=== PATIENT | male | born 1935 | race Caucasian/White ===

== ENCOUNTER 2017-11-09 13:18 | Inpatient (IN) ==
[2017-11-09] MEDS ORDERED: LIDOCAINE W/ SODIUM BICARB 0.5 ML SYR SUBD PRN (14:48)
[2017-11-09] MEDS ORDERED: ONDANSETRON 4 MG/2 ML VIAL IVP PRN (14:48)
[2017-11-09] MEDS ORDERED: CALCIUM CARBONATE 500 MG (TUMS) CHEWABLE TABLET PO PRN (14:48)
[2017-11-09] MEDS ORDERED: DOCUSATE 100 MG CAPSULE PO PRN (14:48)
--- NOTE | 2017-11-09 14:51 | PDOC ---
HPI - History of Present Illness Date of Service: 11/09/17 Time of Service: 14:00 Chief Complaint: Abdominal pain that started yesterday History of Present Illness: This is an 82 years old male with medical history significant for history of coronary artery disease with previous stents in 2001, aortic stenosis which is moderate, hypertension and hypercholesterolemia with sleep apnea who presented yesterday to the ER in [place] complaining from pain in the epigastric area and right upper quadrant, pain is variable intensity and he had before but yesterday was severe maybe 10 out of 10. There was no radiation elsewhere. They did give him some GI cocktail and that did not help much and he was admitted to the hospital. He had troponin done and they were negative. His white count was 14,000 the next day was 17,000 and they discuss it with Dr. Chio Golden and he suggested admission to the hospital. The patient he said he feels better compared to yesterday. He did say that his blood pressure when he went to the ER there was elevated in the 200s range. he is somewhat better compared to then. He denied vomiting but did to have nausea. No diarrhea. He said he had some fever this morning. Past Medical History Medical History: 1. Moderate aortic stenosis. 2. History of coronary artery disease with previous stents had 3 in 2001. On aspirin and Plavix. 3. Diabetes on oral hypoglycemic agent. 4. History of sleep apnea. 5. History of hypertension. 6. Hypercholesterolemia Surgical History: 1. History of stents for coronary artery disease. 2. History of left knee replacement. 3. History of back surgery Family History: Reviewed an Not Pertinent Past Social History: Used to smoke quit more than 45 years ago, doesn't drink and no drugs. Tobacco Use: Former Smoker Do you dip or chew tobacco: No In the Past 12 Months, Have Used or Abuse Any of the Following Substance: None Alcohol Use: None Medication / Allergies Home Medications: Home Medications 3 Medication Instructions Recorded Confirmed Type Clopidogrel Bisulfate [Plavix] 1 tab PO DAILY #5 tab 10/13/16 Clinic Metoprolol Tartrate 1 tab PO tab 10/13/16 History Allergies/Adverse Reactions: Allergies 3 Allergy/AdvReac Type Severity Reaction Status Date / Time No Known Allergies Allergy Verified 11/09/17 15:47 Review of Systems - Review of Systems All Systems: Reviewed & No Additional Complaints Except as Stated Exam - Vitals Vital Signs: Vital Signs Temperature 98.9 F Temperature Source Oral Pulse Rate [Pulse Oximeter] 76 Respiratory Rate 18 Blood Pressure [Left Arm] 132/71 Pulse Ox 94 Oxygen Delivery Method Room Air Height 5 ft 11 in Weight 240 lb 6 oz - General General Appearance: No Acute Distress, Cooperative - Head Head Exam: Normal Inspection - Eye Eye Exam: POSITIVE: Normal Appearance - ENT ENT Exam: POSITIVE: Normal Exam - Neck Neck Exam: Normal Inspection - Respiratory Respiratory Exam: POSITIVE: Clear to Auscultation - Bilaterally - Cardiovascular Cardiovascular Exam: POSITIVE: RRR, Systolic Murmur - GI/Abdominal GI/Abdominal Exam: POSITIVE: Normal Bowel Sounds, Non Distended, Soft Additional GI/Abdominal Exam Details: mild tenderness in the right upper quadrant noted - Rectal Rectal Exam: POSITIVE: Deferred - External Exam: POSITIVE: Deferred Exam: POSITIVE: Deferred - Extremities Additional Extremities Exam Details: Chronic dermatitic changes noted. - Back Back Exam: POSITIVE: Normal Inspection - Neurological Neurological Exam: POSITIVE: Alert, Oriented x 3, CN II-XII Intact, No Facial Droop, Speech Intact / Clear, Moves All Extremities Equally - Psychiatric Psychiatric Exam: POSITIVE: Normal Affect - Integumentary Integumentary Exam: POSITIVE: Normal Color Results - Labs Additional Lab Results: Labs done in the last surgery white count of 17.6 14.3 platelets 131 neutrophil 82% Leake 9.1, lymphocytes 8.7, sodium was 136 potassium 4.6 chloride 101 carbon dioxide 23.8 glucose 180, BUN 20 creatinine 1.1 calcium 8.5 protein 7.1 albumin 3.3 troponin 3.8 alkaline phosphatase 85 ALT 28 AST 26 bilirubin 2.[address] thorax and abdomen done in [place] showed no PE, significant coronary artery calcification, bilateral renal cysts, cholelithiasis, inguinal hernia bilateral , bladder on the right and bowel on the left. No aneurysm. Assessment and Plan - Patient Problems (1) Cholelithiasis Current Visit: Yes Status: Acute Comment: I did discuss it with Dr. Hamilton who suggested IV antibiotics, and ultrasound. We did order ultrasound of his abdomen. We'll hold off on his Plavix and aspirin for now. Code(s): K80.20 - Calculus of gallbladder without cholecystitis without obstruction (2) Hypertension Current Visit: Yes Status: Acute Comment: Continue previous medications Code(s): I10 - Essential (primary) hypertension (3) Hypercholesterolemia Current Visit: Yes Status: Acute Comment: Same med Code(s): E78.00 - Pure hypercholesterolemia, unspecified
--- NOTE | 2017-11-09 15:44 | DI ---
Exam: US ABDOMEN INDICATION: Abdominal pain and cholelithiasis TECHNIQUE: Real-time imaging of the abdomen is performed in transverse and longitudinal projections. COMPARISON: None FINDINGS: There is a 2 cm mobile gallstone without gallbladder sludge. No wall thickening or pericholecystic fluid. Negative sonographic Castillo sign reported. Common bile duct diameter normal at 4 mm. Liver is enlarged measuring 20 cm with mild increase in diffuse echogenicity without focal lesion. Right kidney measures 12 cm in length. There are 2 simple cysts of the right kidney measuring 2.7 cm and 1.7 cm. Otherwise right kidney is unremarkable. Pancreas is not well seen due to overlying bowel gas shadowing. Proximal and mid abdominal aorta is not well seen due to overlying bowel gas shadowing. Distal abdominal aorta is normal in caliber measuring 1.5 cm diameter. IMPRESSION: 1. 2 cm mobile gallstone. Otherwise gallbladder is unremarkable without ultrasound findings for acute cholecystitis. 2. Common bile duct diameter normal. 3. No free fluid. 4. Hepatomegaly with fatty liver. 5. 2 simple cysts of the right kidney..
[2017-11-09] MEDS: Piperacillin/Tazobactam Inj 3.375 GM in Sodium Chloride 0.9% 100 ML IV SCH ×2 (16:55→21:17)
[2017-11-09] MEDS ORDERED: POLYETHYLENE GLYCOL 3350 17 GM POWDER PO ONE ×2 (17:22→18:30)
--- NOTE | 2017-11-09 17:56 | CONSULT ---
Consult Note - Consult Consult Date: 11/09/17 Reason for Consult: PreOp Consulation : General Surgery Requesting Physician: Dr. Javier Primary Care Provider: ELLA LEE - History of Present Illness History of Present Illness: This is an 81-year-old gentleman who has a one-day history of upper abdominal pain. He states that this is muscular pennies at. Has had anything really similar like this before. Pain is a midepigastric to right upper quadrant. It radiates out to the side. He has no nausea vomiting. He denies any fever or chills. No hematochezia hematemesis or melena. Patient initially had a 14,000 white count and his lab work was unremarkable. There was no lipase that was drawn at that time. Patient subsequently white count is gone up to 17,000. And his bilirubin is up 2.6. His liver enzymes otherwise unremarkable. Patient was then transferred to [facility]. Patient states that his abdominal pain is a lot better than it was. Review of Systems - Review of Systems All Systems: Reviewed & No Additional Complaints Except as Stated - Constitutional Constitutional: REPORTS: General Health Fair - Eye Exam Eye Exam: REPORTS: Negative System Review - Ear/Nose Exam Ear/Nose Exam: REPORTS: Negative System Review - Respiratory Respiratory: REPORTS: Negative System Review - Cardiovascular Cardiovascular: REPORTS: Negative System Review (Patient has no acute cardiovascular symptoms. He does have aortic valve stenosis and multiple stents ) - Gastrointestinal Gastrointestinal / Abdominal: REPORTS: See HPI - Genitourinary Genitourinary: REPORTS: Negative System Review - Musculoskeletal Musculoskeletal: REPORTS: Negative System Review - Neurological Neurologic: REPORTS: Negative System Review - Psychiatric Psychiatric: REPORTS: Negative System Review Past Medical History Medical History: 1. Moderate aortic stenosis. 2. History of coronary artery disease with previous stents had 3 in 2001. On aspirin and Plavix. 3. Diabetes on oral hypoglycemic agent. 4. History of sleep apnea. 5. History of hypertension. 6. Hypercholesterolemia Surgical History: 1. History of stents for coronary artery disease. 2. History of left knee replacement. 3. History of back surgery Family History: Reviewed an Not Pertinent Past Social History: Used to smoke quit more than 45 years ago, doesn't drink and no drugs. Tobacco Use: Former Smoker Do you dip or chew tobacco: No In the Past 12 Months, Have Used or Abuse Any of the Following Substance: None Medication / Allergies Home Medications: Home Medications 3 Medication Instructions Recorded Confirmed Type Clopidogrel Bisulfate [Plavix] 1 tab PO DAILY #5 tab 10/13/16 Clinic Metoprolol Tartrate 1 tab PO tab 10/13/16 History Allergies/Adverse Reactions: Allergies 3 Allergy/AdvReac Type Severity Reaction Status Date / Time No Known Allergies Allergy Verified 11/09/17 15:47 Exam - Vitals Vital Signs: Vital Signs Temperature 98.8 F Temperature Source Oral Pulse Rate [Pulse Oximeter] 74 Respiratory Rate 18 Blood Pressure [Left Arm] 130/68 Pulse Ox 93 Oxygen Delivery Method Room Air Height 5 ft 11 in Weight 240 lb 6 oz - GI/Abdominal GI/Abdominal Exam: POSITIVE: Normal Bowel Sounds, Non Tender, Non Distended, Soft - Neurological Neurological Exam: POSITIVE: Oriented x 3, CN II-XII Intact - Integumentary Additional Integumentary Exam Details: Patient has brawny edema of the lower extremities Assessment and Plan - Patient Problems (1) Cholelithiasis Current Visit: Yes Status: Acute Code(s): K80.20 - Calculus of gallbladder without cholecystitis without obstruction - Assessment / Plan Additional Assessment/Plan Details: On ultrasound the patient has a 2 cm gallstone but no evidence of acute cholecystitis. Will check a lipase in the morning. Repeat labs in the morning. Since the patient is on Plavix would like to have him off 5-7 days if possible. Continue antibiotics. I have spoken with Dr. Javier prior to and after seeing the patient
[2017-11-09] MEDS ORDERED: ATORVASTATIN 40 MG TABLET PO SCH (21:00)
[2017-11-09] MEDS: Metoprolol TARTRATE Tab 25 MG TAB PO SCH (21:13)
[2017-11-10] MEDS: Piperacillin/Tazobactam Inj 3.375 GM in Sodium Chloride 0.9% 100 ML IV SCH ×3 (04:16→16:47)
[2017-11-10 05:00] LABS: BASOPHILS # (AUTO) 0.03 10*3/UL; BASOPHILS % (AUTO) 0.2 % (0-1); EOSINOPHILS # (AUTO) 0.01 10*3/UL; EOSINOPHILS % (AUTO) 0.1 % (0-8); Hematocrit [HCT] 42.8 % (42.0-52.0); Hemoglobin [HGB] 14.1 g/dL (14.0-18.0); MEAN CORPUSCULAR HEMOGLOBIN 31.2 PG (27-31); MEAN CORPUSCULAR HGB CONC 32.9 g/dL (33-37); MEAN CORPUSCULAR VOLUME 94.7 FL (80-90); MEAN PLATELET VOLUME 9.8 FL (7.4-12.2); MONOCYTES # (AUTO) 2.03 10*3/UL (0.3-0.8); MONOCYTES % (AUTO) 11.1 % (5-15); NEUTROPHILS % (AUTO) 81.2 % (50-80); RED BLOOD COUNT 4.52 10^6/uL (4.70-6.10)
[2017-11-10 05:11] LABS: BLOOD UREA NITROGEN 21 mg/dL (7-22); SERUM ALBUMIN 3.5 g/dL (3.5-4.8)
[2017-11-10 06:41] LABS: LIPASE 146 IU/L (23-300)
[2017-11-10 06:44] LABS: PLATELET MORPHOLOGY COMMENT NORMAL MORPHOLOGY (NORM); RBC MORPHOLOGY COMMENT NORMAL MORPHOLOGY (NORM); WBC MORPHOLOGY COMMENT NORMAL MORPHOLOGY (NORM)
[2017-11-10] MEDS: Metoprolol TARTRATE Tab 25 MG TAB PO SCH (08:25)
[2017-11-10] MEDS: ACETAMINOPHEN 325 MG TABLET PO PRN ×2 (08:41→14:52)
[2017-11-10 08:48] LABS: BILIRUBIN,URINE NEGATIVE (NEG); CLARITY,URINE CLEAR (CLEAR); COLOR,URINE YELLOW (Y); GLUCOSE, URINE (UA) NEGATIVE (NEG); OCCULT BLOOD,URINE Trace-intact (NEG); PH,URINE 5.5 (5.0-8.5); PROTEIN,URINE >300 mg/dl (NEG); UROBILINOGEN,URINE 0.2 EU/dL (0.2)
[2017-11-10 08:59] LABS: URINE SAMPLE TYPE CLEAN CATCH URINE
[2017-11-10] MEDS ORDERED: LOSARTAN 50 MG TABLET PO SCH (09:00)
[2017-11-10] MEDS ORDERED: metFORMIN 500 MG TABLET PO SCH (09:00)
--- NOTE | 2017-11-10 09:11 | PDOC(PROG) ---
Date of Service: 11/10/17 Time of Service: 09:08 Interval History: Patient states that he is feeling a little bit better today. He denies any fevers. The nursing staff is according 99.2 temperature. His white count has gone up to 18,000 but he was just started on antibiotics yesterday. Patient did receive a dose of Plavix yesterday Objective : Data - Labs CBC and BMP: 11/10/17 04:35 11/10/17 04:35 - Vital Signs Vital Signs and I&O: Vital Signs - Last Taken Temperature 99.3 F 11/10/17 06:58 Pulse Rate 88 11/10/17 07:00 Respiratory Rate 28 H 11/10/17 06:58 Blood Pressure 161/77 11/10/17 06:58 Pulse Ox 90 11/10/17 06:58 Intake and Output (24hr x 4 totals) 11/08/17 11/09/17 11/10/17 11/11/17 05:59 05:59 05:59 05:59 Intake Total 461 / 461 900 / 900 Output Total 675 / 675 150 / 150 Balance -214 / -214 750 / 750 Objective : Exam - GI/Abdominal Additional GI/Abdominal Exam Details: Patient has some tenderness in the right upper quadrant and to the right flank. He does not have any rebound or rigidity. He does state it hurts to take a deep breath. Patient has bilateral inguinal hernias but there is no pain associated with that. His rest of his abdomen is soft nontender Assessment and Plan - Patient Problems (1) Cholelithiasis Current Visit: Yes Status: Acute Code(s): K80.20 - Calculus of gallbladder without cholecystitis without obstruction - Assessment / Plan Additional Assessment/Plan Details: I did think patient is. Acute cholecystitis despite ultrasound showing no thickening of the gallbladder wall. His bilirubin is elevated 4.9 but direct is 0. His common bile duct measured 4 mm. His alk phosphatase is normal, therefore, I do not think he has obstructive jaundice. Since he just started antibodies yesterday and also he he just stopped his Plavix today I would like to try another 24 hours of antibody therapy see if we cannot control acute cholecystitis. Would like to wait as long as possible to do the gallbladder surgery but if the patient continues to have increased white count or gets worse may have to do surgery despite being on Plavix.
--- NOTE | 2017-11-10 09:43 | PDOC(PROG) ---
Date of Service: 11/10/17 Time of Service: 09:30 Interval History: Subjective Continued to have some pain in the right upper quadrant area mainly. Still have some epigastric pain. No vomiting. He Is denying shortness of breath, denying anginal pain. he said he have some pain when he coughs in the same area. He doesn't have his CPAP with him so they used oxygen last night, he doesn't need O2 during the daytime. Objective : Data - Labs CBC and BMP: 11/10/17 04:35 11/10/17 04:35 Objective : Exam - General General Appearance: No Acute Distress, Cooperative - Head Head Exam: Normal Inspection - Eye Eye Exam: Normal Appearance - ENT ENT Exam: Normal Exam - Neck Neck Exam: Normal Inspection - Respiratory Additional Respiratory Exam Details: Decreased air entry otherwise clear. - Cardiovascular Cardiovascular Exam: RRR, Systolic Murmur - GI/Abdominal GI/Abdominal Exam: Normal Bowel Sounds, Non Distended, Soft, No Organomegaly Additional GI/Abdominal Exam Details: There is still tenderness in the right upper quadrant - Rectal Rectal Exam: Deferred - External Exam: Deferred Exam: Deferred - Extremities Additional Extremities Exam Details: Chronic dermatitic changes noted. - Neurological Neurological Exam: Alert, Oriented x 3, Normal Gait, CN II-XII Intact, No Facial Droop, Speech Intact / Clear, Moves All Extremities Equally - Psychiatric Psychiatric Exam: Normal Affect Assessment and Plan - Patient Problems (1) Cholelithiasis Current Visit: Yes Status: Acute Comment: He is been treated as cholecystitis the ultrasound though was negative but clinically looks like cholecystitis. I did order a chest x-ray for him because he was somewhat tachypneic but he is denying shortness of breath maybe secondary to the cholecystitis itself. Continue current IV antibiotics. Repeat labs tomorrow. Discussed with Dr. Hamilton who will see him tomorrow and then will decide whether he'll take him to surgery or continue conservative management. Though his bilirubin is elevated but the its indirect. Suggest maybe Gilbert disease Code(s): K80.20 - Calculus of gallbladder without cholecystitis without obstruction (2) Hypertension Current Visit: Yes Status: Acute Comment: Same medication Code(s): I10 - Essential (primary) hypertension (3) Hypercholesterolemia Current Visit: Yes Status: Acute Comment: Same med Code(s): E78.00 - Pure hypercholesterolemia, unspecified (4) History of coronary artery disease Current Visit: Yes Status: Acute Comment: We've held his Plavix and aspirin in case he needs surgery. Continue metoprolol, losartan and Lipitor. Code(s): Z86.79 - Personal history of other diseases of the circulatory system
--- NOTE | 2017-11-10 10:49 | DI ---
EXAM: XR Chest, 2 Views CLINICAL HISTORY: pain with taking deep breath on the right side TECHNIQUE: Frontal and lateral views of the chest. COMPARISON: No relevant prior studies available. FINDINGS: Lungs: Low lung volumes, which may be related to shallow inspiration. Minimal linear atelectasis in the right lung base. The lungs are otherwise clear without focal consolidation. Pleural space: Unremarkable. The costophrenic angle are sharp. No visible pneumothorax. Heart: Unremarkable. No cardiomegaly. Mediastinum: Unremarkable. Bones/joints: Unremarkable. Vasculature: Atherosclerotic calcifications are noted within the aortic arch. IMPRESSION: 1. Low lung volumes, which may be related to shallow inspiration. 2. Minimal linear atelectasis in the right lung base.
[2017-11-10 15:22] VITALS: O2SAT 93
--- NOTE | 2017-11-10 15:52 | DCSUMMARY ---
Hospitalization Summary Admit Date: 11/09/2017 Discharge Date: 11/10/17 Hospital Course: Transfer diagnoses 1. Sepsis 2. Right upper abdominal pain, being treated clinically as cholecystitis 3. History of hypertension 4. History of coronary artery disease with previous stents 5. History of moderate aortic stenosis 6. History of sleep apnea 7. Indirect bilirubinemia Hospital course This is a 82 years old male with medical history significant for history of coronary artery disease with previous stents in 2001, aortic stenosis which is moderate, hypertension, hypercholesterolemia with sleep apnea who presented to the hospital in [place] complaining from pain yesterday in the right upper quadrant on Saturday, the pain he said he had it before but was not severe but on the day presented to [place] was severe 10 out of 10. There was no radiation elsewhere. They did give him a GI cocktail and that did not help much and he was admitted to the hospital. He had troponin done and they were negative. His white count was 14,000 when he presented and the next day was 17,000, they did do a CT of the abdomen and that showed gallstones that was discussed with the surgeon Dr. Foss who accepted the patient and the patient was admitted here. When I saw him he said his pain was better, he had decreased appetite and some nausea but no vomiting. He did have some tenderness in the right upper quadrant. Today his white count is 18,000. He did have an ultrasound of the abdomen which showed gallstones there was no thickening of the gallbladder wall and the bile duct was 4 mm. His bilirubin when he presented to [facility] was 1.5, yesterday was 2.5 today's 4.9 in our hospital. However the direct was 0. Today the plan was to continue the same treatment which was antibiotics with Zosyn that we started yesterday. He is somewhat of a puzzle as his the ultrasound did not show thickening of the gallbladder. Per my discussion with Dr. German he still think that it's cholecystitis. He has seen in it the elderly before were they have cholecystitis without thickening of the gallbladder. Patient was treated conservatively because he was on Plavix which we were not aware that he is on before transfer. The Plavix was withheld and the last time he had it was in [facility] yesterday morning. In the afternoon patient became tachypneic fever 100.1 which he did not have also tachypneic and tachycardic. He is denying shortness of breath. Chest x-ray showed a poor inspiratory effort with minimal atelectasis of the right. I did speak with Dr. Hamilton again this time he suggested that we transfer the patient I did speak with the hospitalist Dr. Finn who accepted the patient. I did speak with Dr. Coppola he knows about the patient. He think it is less likely to be biliary. The patient did accept transfer. Patient likely need repeat a CT of the abdomen and chest I think but we'll leave it to [facility] as he is being transferred there. Discharge instruction Diet clear liquid Medications 3 Generic Name Dose Route Start Last Admin Trade Name Freq PRN Reason Stop Dose Admin Acetaminophen 650 mg 11/09/17 14:48 11/10/17 14:52 Tylenol PO 650 mg Q6H PRN Administration Pain or Fever Atorvastatin Calcium 40 mg 11/09/17 21:00 11/09/17 21:13 Lipitor PO 40 mg BEDTIME BRAYAN Administration Calcium Carbonate 1 - 2 tab 11/09/17 14:48 Tums PO Q6H PRN Heartburn Docusate Sodium 100 mg 11/09/17 14:48 Colace PO BID PRN Constipation Sodium Chloride 25 mls @ 200 mls/hr 11/09/17 14:48 Normal Saline 0.9% IV .Post Infusion PRN No Primary IV for Flush ONLY Piperacillin Sod/Tazobactam 100 mls @ 200 mls/hr 11/09/17 16:00 11/10/17 10: 20 Sod 3.375 gm/ Sodium Chloride IV 200 mls/hr Q6H BRAYAN Administration Lidocaine HCl 0.5 ml 11/09/17 14:48 Lidocaine Buffered Inj SUBD ONCE PRN IV Starts Losartan Potassium 50 mg 11/10/17 09:00 11/10/17 08:25 Cozaar PO 50 mg DAILY BRAYAN Administration Metoprolol Tartrate 25 mg 11/09/17 21:00 11/10/17 08:25 Lopressor Tab PO 25 mg BID BRAYAN Administration Ondansetron HCl 4 mg 11/09/17 14:48 Zofran Inj IVP Q4H PRN NAUSEA / VOMITING Follow-up per [facility] post discharge Exam - Vitals Vital Signs: Vital Signs Temperature 100.1 F Temperature Source Oral Pulse Rate [Apical] 88 Pulse Rate [Pulse Oximeter] 110 Respiratory Rate 42 Blood Pressure [Left Arm] 156/70 Pulse Ox 93 Oxygen Flow Rate 4 Oxygen Delivery Method Mask-Simple Height 5 ft 11 in Weight 236 lb 8 oz Patient Problems - Patient Problem List (1) Cholelithiasis Status: Acute Code(s): K80.20 - Calculus of gallbladder without cholecystitis without obstruction Category: Medical (2) Hypertension Status: Acute Code(s): I10 - Essential (primary) hypertension Category: Medical (3) Hypercholesterolemia Status: Acute Code(s): E78.00 - Pure hypercholesterolemia, unspecified Category: Medical (4) History of coronary artery disease Status: Acute Code(s): Z86.79 - Personal history of other diseases of the circulatory system Category: Medical
[2017-11-10 16:18] VITALS: BP 143/68; RESP 40; TEMP 99.2
[2017-11-10] MEDS ORDERED: Sodium Chloride 0.9% 1,000 ML PRIMARY IV SCH (16:45)
== END 2017-11-10 17:20 | disposition short-term general hospital (02) | DRG 872 ==
LOC: MED/SURG 13:32 → UNDODISIN 11-10 17:20
PROVIDERS: ADMIT Internal Medicine; ATTEND Internal Medicine